=== PATIENT | female | born 1950 | race Caucasian/White ===

== ENCOUNTER 2023-10-19 03:54 | Inpatient (IN) | payer OTHER ==
[2023-10-19] MEDS ORDERED: ALBUTEROL SO4 2.5/IPRATROPIUM 0.5 INH SOL 3 ML VIAL.NEB. NEB ONE (04:05)
[2023-10-19] MEDS: ALBUTEROL SO4 2.5/IPRATROPIUM 0.5 INH SOL 3 ML VIAL.NEB. NEB ONE (04:06)
[2023-10-19] MEDS: methylPREDNISolone NA SUCC 125 MG/2 ML VIAL IVPB ONE (04:34)
[2023-10-19] MEDS: BUDESONIDE 0.5 MG/2 ML INH SUSP VIAL NEB ONE (04:34)
[2023-10-19] MEDS ORDERED: methylPREDNISolone NA SUCC 125 MG/2 ML VIAL ONE (04:35)
[2023-10-19 05:08] LABS: VENOUS BASE EXCESS 9.7 mmol/L (-2-2); VENOUS O2 SATURATION 37.6 % (70-80); VENOUS PH 7.218 (7.310-7.410)
[2023-10-19 05:10] LABS: HEMATOCRIT 35.5 % (32.4-45.2); HEMOGLOBIN 11.7 GM/dL (10.7-15.3); MCH 34.3 pg (25.7-33.7); MCHC 33.1 g/dl (32.0-36.0); MEAN CELL VOLUME 103.8 fl (80-96); MEAN PLT VOLUME 7.8 fl (7.5-11.1); PLATELET COUNT 238 10^3/uL (134-434); RBC 3.42 M/mm3 (3.60-5.2); RDW 18.2 % (11.6-15.6); VENOUS PCO2 104.8 mmHg (38-52); WHITE BLOOD COUNT 6.5 K/mm3 (4.0-10.0)
[2023-10-19 05:21] LABS: POTASSIUM 4.1 mmol/L (3.5-5.1)
[2023-10-19 05:23] LABS: CALCIUM 9.6 mg/dL (8.5-10.1)
[2023-10-19 05:24] LABS: ALBUMIN 3.3 g/dl (3.4-5.0); BLOOD UREA NITROGEN 21.3 mg/dL (7-18)
[2023-10-19 05:26] LABS: CREATININE 0.8 mg/dL (0.55-1.3)
[2023-10-19 05:28] LABS: BILIRUBIN,TOTAL 0.9 mg/dL (0.2-1); TOT PROT 6.1 g/dl (6.4-8.2)
[2023-10-19 05:34] LABS: INR 1.34 (0.83-1.09)
[2023-10-19 05:36] LABS: ACTIVATED PTT 39.3 SECONDS (25.2-36.5)
[2023-10-19] MEDS: FAMOTIDINE 20 MG/50 ML IVPB 20 MG/50 ML MG IVPB ONE (05:57)
[2023-10-19 06:13] LABS: ARTERIAL BLD GAS O2 SATURATION 88.2 % (95-98); ARTERIAL BLOOD GAS BASE EXCESS 8.1 mmol/L (-2-2); ARTERIAL BLOOD GAS PO2 63.2 mmHg (80-100); ARTERIAL BLOOD GAS pH 7.282 (7.350-7.450)
[2023-10-19 06:14] LABS: ALLENS TEST POSITIVE; VENT MODE S/T; VENT RATE 20
[2023-10-19] MEDS: FUROSEMIDE 40 MG/4 ML INJECTABLE VIAL IVPUSH ONE (06:48)
[2023-10-19] MEDS: AZITHROMYCIN IVPB 500 MG in DEXTROSE 5%-WATER - 250 ML IVPB ONE (06:49)
[2023-10-19] MEDS ORDERED: CEFTRIAXONE 1 GM/50 ML BAG ONE (06:50)
[2023-10-19] MEDS ORDERED: FUROSEMIDE 40 MG/4 ML INJECTABLE VIAL ONE ×2 (06:50→06:52)
[2023-10-19] MEDS ORDERED: AZITHROMYCIN IVPB 500 MG/250 ML BAG IVPB ONE (06:51)
[2023-10-19 09:33] LABS: ANISOCYTOSIS 1+; MACROCYTOSIS 1+
[2023-10-19] MEDS: ALBUTEROL SO4 0.083% IH SOL 2.5 MG/3 ML VIAL.NEB. NEB SCH (15:30)
[2023-10-19] MEDS: CEFEPIME 2 GM in DEXTROSE 5%-WATER 100 ML IVPB SCH (17:28)
[2023-10-19] MEDS ORDERED: CEFEPIME HCL 2 GM VIAL (RESTRICTED TO ID) IVPB SCH (18:00)
[2023-10-19] MEDS: BUDESONIDE/FORMETEROL FUMARATE 160/4.5 mcg INHALER IH SCH (21:11)
[2023-10-20] MEDS: PANTOPRAZOLE SODIUM 40 MG VIAL IVPUSH SCH (09:45)
[2023-10-20 09:59] LABS: INR 1.27 (0.83-1.09); PROTHROMBIN TIME (PATIENT) 14.2 SEC (9.7-13.0)
[2023-10-20] MEDS ORDERED: CEFEPIME HCL 1 GM VIAL (RESTRICTED TO ID) IVPB SCH (10:00)
[2023-10-20] MEDS ORDERED: CEFEPIME 1 GM in DEXTROSE 5%-WATER 100 ML IVPB SCH (10:00)
[2023-10-20 10:01] LABS: ACTIVATED PTT 32.2 SECONDS (25.2-36.5)
[2023-10-20 10:05] LABS: BASO % 0.2 % (0-2.0); HEMATOCRIT 33.3 % (32.4-45.2); HEMOGLOBIN 11.4 GM/dL (10.7-15.3); LYMPH % 7.6 % (8-40); MCH 34.5 pg (25.7-33.7); MCHC 34.2 g/dl (32.0-36.0); MEAN CELL VOLUME 100.9 fl (80-96); MONO % 9.9 % (3.8-10.2); NEUT % 82.3 % (42.8-82.8); PLATELET COUNT 215 10^3/uL (134-434); RDW 17.8 % (11.6-15.6); WHITE BLOOD COUNT 6.1 K/mm3 (4.0-10.0)
[2023-10-20 10:14] LABS: POTASSIUM 3.5 mmol/L (3.5-5.1)
[2023-10-20 10:16] LABS: CALCIUM 9.1 mg/dL (8.5-10.1)
[2023-10-20 10:17] LABS: BLOOD UREA NITROGEN 24.6 mg/dL (7-18); MAGNESIUM 1.5 mg/dL (1.8-2.4)
[2023-10-20 10:20] LABS: CREATININE 0.6 mg/dL (0.55-1.3); PHOSPHOROUS 1.7 mg/dL (2.5-4.9)
[2023-10-20 10:25] LABS: N-TERMINAL BNP 4132.8 pg/ml (5-125)
[2023-10-20] MEDS: MAGNESIUM SULF 50% (8.12 MEQ/2 ML-1 GM VIAL) IVPB ONE (11:35)
[2023-10-20] MEDS: POTASSIUM PHOSPHATE 30 MM in DEXTROSE 5%-WATER - 500 ML IVPB ONE (12:48)
[2023-10-20] MEDS: CEFEPIME 2 GM in DEXTROSE 5%-WATER 100 ML IVPB SCH (20:01)
[2023-10-20] MEDS: FUROSEMIDE INJECTION 100 MG in SODIUM CHLORIDE 90 ML IVPB SCH (20:02)
[2023-10-20] MEDS: DABIGATRAN ETEXILATE MESYLATE 75 MG CAPSULE PO SCH (22:20)
[2023-10-21 10:08] LABS: BASO % 0.4 % (0-2.0); EOS % 0.2 % (0-4.5); HEMATOCRIT 38.4 % (32.4-45.2); HEMOGLOBIN 12.8 GM/dL (10.7-15.3); LYMPH % 13.5 % (8-40); MCH 33.7 pg (25.7-33.7); MCHC 33.4 g/dl (32.0-36.0); MEAN CELL VOLUME 100.8 fl (80-96); MEAN PLT VOLUME 7.8 fl (7.5-11.1); MONO % 10.3 % (3.8-10.2); NEUT % 75.6 % (42.8-82.8); PLATELET COUNT 209 10^3/uL (134-434); RBC 3.81 M/mm3 (3.60-5.2); RDW 18.1 % (11.6-15.6); WHITE BLOOD COUNT 5.9 K/mm3 (4.0-10.0)
[2023-10-21 10:33] LABS: POTASSIUM 3.8 mmol/L (3.5-5.1)
[2023-10-21 10:36] LABS: CALCIUM 9.3 mg/dL (8.5-10.1); MAGNESIUM 1.6 mg/dL (1.8-2.4)
[2023-10-21 10:37] LABS: ALBUMIN 3.3 g/dl (3.4-5.0); BLOOD UREA NITROGEN 20.9 mg/dL (7-18)
[2023-10-21] MEDS: metoPROLOL SUCCINATE 25 MG TAB.SR.24H (FP) PO SCH (10:38)
[2023-10-21 10:39] LABS: PHOSPHOROUS 2.5 mg/dL (2.5-4.9)
[2023-10-21 10:41] LABS: CREATININE 0.6 mg/dL (0.55-1.3)
[2023-10-21 10:42] LABS: BILIRUBIN,TOTAL 1.5 mg/dL (0.2-1); TOT PROT 6.3 g/dl (6.4-8.2)
[2023-10-21] MEDS: CEFEPIME 2 GM in DEXTROSE 5%-WATER 100 ML IVPB SCH (18:19)
[2023-10-22 07:39] LABS: HEMATOCRIT 33.8 % (32.4-45.2); HEMOGLOBIN 11.4 GM/dL (10.7-15.3); MCH 34.3 pg (25.7-33.7); MCHC 33.9 g/dl (32.0-36.0); MEAN CELL VOLUME 101.2 fl (80-96); MEAN PLT VOLUME 8.4 fl (7.5-11.1); PLATELET COUNT 177 10^3/uL (134-434); RBC 3.34 M/mm3 (3.60-5.2); RDW 18.1 % (11.6-15.6); WHITE BLOOD COUNT 6.3 K/mm3 (4.0-10.0)
[2023-10-22 07:50] LABS: POTASSIUM 3.1 mmol/L (3.5-5.1)
[2023-10-22 07:51] LABS: CALCIUM 8.5 mg/dL (8.5-10.1)
[2023-10-22 07:52] LABS: BLOOD UREA NITROGEN 18.9 mg/dL (7-18); MAGNESIUM 1.4 mg/dL (1.8-2.4)
[2023-10-22 07:55] LABS: CREATININE 0.5 mg/dL (0.55-1.3); PHOSPHOROUS 3.1 mg/dL (2.5-4.9)
[2023-10-22] MEDS: FUROSEMIDE 40 MG/4 ML INJECTABLE VIAL IVPUSH SCH (09:35)
[2023-10-22] MEDS: ACETAMINOPHEN 1000 MG/100 ML BAG IVPB ONE (19:49)
[2023-10-22] MEDS ORDERED: KCL 20 MEQ PREMIX BAG 20 MEQ/100 ML INFUS.BAG IVPB SCH (20:30)
[2023-10-22] MEDS: MAGNESIUM OXIDE 400 MG TABLET (FP) PO ONE (20:52)
[2023-10-22] MEDS: MAGNESIUM SULFATE IN WATER 2 GM/50 ML IVPB IVPB ONE (20:52)
[2023-10-22] MEDS: KCL 10 MEQ IVPB 10 MEQ/100 ML INFUS.BAG IVPB SCH (22:33)
[2023-10-23 07:22] LABS: POTASSIUM 3.1 mmol/L (3.5-5.1)
[2023-10-23 07:27] LABS: BLOOD UREA NITROGEN 18.7 mg/dL (7-18); CALCIUM 8.4 mg/dL (8.5-10.1); MAGNESIUM 1.9 mg/dL (1.8-2.4)
[2023-10-23 07:30] LABS: PHOSPHOROUS 2.6 mg/dL (2.5-4.9)
[2023-10-23 07:31] LABS: CREATININE 0.4 mg/dL (0.55-1.3)
[2023-10-23 07:32] LABS: BILIRUBIN,TOTAL 2.4 mg/dL (0.2-1); TOT PROT 5.7 g/dl (6.4-8.2)
[2023-10-23] MEDS: ACETAMINOPHEN 325 MG TABLET (FP) PO PRN (15:47)
[2023-10-23] MEDS: SERTRALINE HCL 50 MG TABLET (FP) PO SCH (15:50)
[2023-10-23] MEDS: POTASSIUM CHLORIDE ORAL LIQUID 20 MEQ/15 ML PO SCH (21:19)
[2023-10-23] MEDS: DOCUSATE SODIUM 100 MG CAPSULE (FP) PO PRN (21:20)
[2023-10-24 06:16] LABS: HEMATOCRIT 36.8 % (32.4-45.2); HEMOGLOBIN 12.3 GM/dL (10.7-15.3); MCH 33.9 pg (25.7-33.7); MCHC 33.5 g/dl (32.0-36.0); MEAN CELL VOLUME 101.2 fl (80-96); MEAN PLT VOLUME 8.7 fl (7.5-11.1); PLATELET COUNT 155 10^3/uL (134-434); RBC 3.64 M/mm3 (3.60-5.2); RDW 16.9 % (11.6-15.6); WHITE BLOOD COUNT 8.1 K/mm3 (4.0-10.0)
[2023-10-24 06:39] LABS: CHLORIDE 87 mmol/L (98-107); SODIUM 135 mmol/L (136-145)
[2023-10-24 06:45] LABS: CALCIUM 8.8 mg/dL (8.5-10.1)
[2023-10-24 06:46] LABS: ALBUMIN 2.9 g/dl (3.4-5.0); BLOOD UREA NITROGEN 19.4 mg/dL (7-18); CO2 42 mmol/L (21-32); GLUCOSE,RANDOM 108 mg/dL (74-106); MAGNESIUM 1.9 mg/dL (1.8-2.4)
[2023-10-24 06:49] LABS: CREATININE 0.5 mg/dL (0.55-1.3); SGOT/AST 15 U/L (15-37); SGPT/ALT 16 U/L (13-61)
[2023-10-24 06:50] LABS: BILIRUBIN,TOTAL 1.8 mg/dL (0.2-1)
[2023-10-24 06:51] LABS: TOT PROT 5.8 g/dl (6.4-8.2)
[2023-10-24 06:52] LABS: ALK PHOS 85 U/L (45-117)
[2023-10-24 06:57] LABS: ANION GAP 6 mmol/L (4-13); POTASSIUM 2.9 mmol/L (3.5-5.1)
[2023-10-24] MEDS: MAGNESIUM SULF 50% (8.12 MEQ/2 ML-1 GM VIAL) IVPB ONE (08:30)
[2023-10-24] MEDS: KCL 10 MEQ IVPB 10 MEQ/100 ML INFUS.BAG IVPB SCH (08:30)
[2023-10-24] MEDS: POLYETHYLENE GLYCOL (HEALTHYLAX) 3350 17 GM PACKET PO SCH (10:00)
[2023-10-24 17:27] LABS: BLOOD UREA NITROGEN 17.9 mg/dL (7-18); CALCIUM 8.4 mg/dL (8.5-10.1); CREATININE 0.7 mg/dL (0.55-1.3); POTASSIUM 3.3 mmol/L (3.5-5.1)
[2023-10-25 06:34] LABS: HEMATOCRIT 36.2 % (32.4-45.2); HEMOGLOBIN 12.1 GM/dL (10.7-15.3); MCH 33.6 pg (25.7-33.7); MCHC 33.2 g/dl (32.0-36.0); MEAN CELL VOLUME 101.2 fl (80-96); MEAN PLT VOLUME 8.7 fl (7.5-11.1); PLATELET COUNT 169 10^3/uL (134-434); RBC 3.58 M/mm3 (3.60-5.2); RDW 17.4 % (11.6-15.6); WHITE BLOOD COUNT 7.4 K/mm3 (4.0-10.0)
[2023-10-25 07:04] LABS: POTASSIUM 3.5 mmol/L (3.5-5.1)
[2023-10-25 07:05] LABS: CALCIUM 8.4 mg/dL (8.5-10.1)
[2023-10-25 07:09] LABS: CREATININE 0.4 mg/dL (0.55-1.3)
[2023-10-25] MEDS: ALPRAZolam 1 MG TABLET PO PRN (13:58)
[2023-10-25] MEDS: AMINO ACIDS/PROTEIN HYDROLYS 30 ML LIQUID.PKT PO SCH (18:02)
[2023-10-26] MEDS: ALBUTEROL SO4 0.083% IH SOL 2.5 MG/3 ML VIAL.NEB. NEB SCH (07:40)
[2023-10-26] MEDS: ASCORBIC ACID 500 MG TABLET (FP) PO SCH (09:19)
[2023-10-26] MEDS: CEFEPIME 2 GM in DEXTROSE 5%-WATER 100 ML IVPB SCH (09:19)
[2023-10-26] MEDS: PANTOPRAZOLE SODIUM 40 MG VIAL IVPUSH SCH (09:19)
[2023-10-26] MEDS: metoPROLOL SUCCINATE 25 MG TAB.SR.24H (FP) PO SCH (09:19)
[2023-10-26] MEDS: BUDESONIDE/FORMETEROL FUMARATE 160/4.5 mcg INHALER IH SCH (11:20)
[2023-10-26] MEDS: DABIGATRAN ETEXILATE MESYLATE 75 MG CAPSULE PO SCH (11:21)
[2023-10-26] MEDS ORDERED: CEFEPIME HCL 2 GM VIAL (RESTRICTED TO ID) ONE (17:22)
[2023-10-28] MEDS: POLYETHYLENE GLYCOL (HEALTHYLAX) 3350 17 GM PACKET PO SCH (09:42)
[2023-10-28] MEDS: DOCUSATE SODIUM 100 MG CAPSULE (FP) PO PRN (11:12)
[2023-10-29 08:52] LABS: POTASSIUM 4.4 mmol/L (3.5-5.1)
[2023-10-29 08:55] LABS: CALCIUM 8.7 mg/dL (8.5-10.1)
[2023-10-29 08:56] LABS: BLOOD UREA NITROGEN 23.4 mg/dL (7-18); MAGNESIUM 1.7 mg/dL (1.8-2.4)
[2023-10-29 08:58] LABS: CREATININE 0.4 mg/dL (0.55-1.3)
[2023-10-29 09:00] LABS: BILIRUBIN,TOTAL 0.8 mg/dL (0.2-1)
[2023-10-29] MEDS: PANTOPRAZOLE 40 MG TABLET PO SCH (09:47)
[2023-10-29] MEDS: TORSEMIDE 20 MG TABLET (FP) PO SCH (09:47)
[2023-10-29] MEDS: BISACODYL 10 MG SUPP.RECT PR ONE (11:50)
[2023-10-29] MEDS: FUROSEMIDE 100 MG/10 ML INJECTABLE VIAL IVPB SCH (14:49)
[2023-10-29] MEDS: SENNOSIDES 8.6MG TABLET (FP) PO PRN (21:35)
[2023-10-29] MEDS: GLYCERIN 1 RECTAL SUPPOSITORY, ADULT RC ONE (22:34)
[2023-10-29 23:45] VITALS: BMI 41.8
[2023-10-30 08:42] LABS: POTASSIUM 3.6 mmol/L (3.5-5.1)
[2023-10-30 08:46] LABS: BLOOD UREA NITROGEN 24.1 mg/dL (7-18); CALCIUM 9.2 mg/dL (8.5-10.1)
[2023-10-30 08:50] LABS: CREATININE 0.5 mg/dL (0.55-1.3)
[2023-10-30 08:51] LABS: BILIRUBIN,TOTAL 1.1 mg/dL (0.2-1); TOT PROT 5.9 g/dl (6.4-8.2)
[2023-10-30] MEDS: MULTIVITAMINS (DAILY MVI) TABLET (FP) PO SCH (13:19)
[2023-10-31] MEDS: POTASSIUM CHLORIDE ORAL LIQUID 20 MEQ/15 ML PO ONE (09:02)
[2023-10-31 10:53] VITALS: BP 116/69; PULSE 99; RESP 24; TEMP 97.9
== END 2023-10-31 10:55 | DRG 190 ==
LOC: JER 03:54 → JERBED 06:22 → JICU 10:05 → J4W 10-26 06:54
PROVIDERS: ADMIT Internal Medicine; ATTEND Internal Medicine
PROC: 05HB33Z Insertion of Infusion Device into Right Basilic Vein, Percutaneous Approach (ICD-10-PCS; principal; 2023-10-20)
PROC: B51MZZA Fluoroscopy of Right Upper Extremity Veins, Guidance (ICD-10-PCS; 2023-10-20)
DX: J44.0 Chronic obstructive pulmonary disease with (acute) lower respiratory infection (principal); I50.23 Acute on chronic systolic (congestive) heart failure; J18.9 Pneumonia, unspecified organism; J96.21 Acute and chronic respiratory failure with hypoxia; J96.22 Acute and chronic respiratory failure with hypercapnia; Z68.41 Body mass index [BMI] 40.0-44.9, adult; E87.22 Chronic metabolic acidosis; E87.1 Hypo-osmolality and hyponatremia; E87.3 Alkalosis; I48.91 Unspecified atrial fibrillation; E87.70 Fluid overload, unspecified; E87.6 Hypokalemia; I11.0 Hypertensive heart disease with heart failure; E66.01 Morbid (severe) obesity due to excess calories; K21.9 Gastro-esophageal reflux disease without esophagitis; J44.1 Chronic obstructive pulmonary disease with (acute) exacerbation; Z99.81 Dependence on supplemental oxygen; Z86.718 Personal history of other venous thrombosis and embolism; Z88.0 Allergy status to penicillin
CPT/HCPCS: 0241U-QW; 36415; 36600; 71045-TC-FY; 71250-TC; 80048; 80053; 82803; 82962; 83690; 83735; 83880; 84100; 84484; 85025; 85027; 85610; 85730; 87040; 87899; 93005; 93010; 93306-TC; 94640; 94660; 97161-GP; 99285-25; J0131

== ENCOUNTER 2024-01-13 09:58 | Inpatient (IN) | payer OTHER ==
[2024-01-13] MEDS: SODIUM CHLORIDE 0.9% 1000 ML INFUS.BAG IV ONE ×2 (10:55→14:27)
[2024-01-13] MEDS: LACTATED RINGERS SOLUTION 1000 ML INFUS.BAG IV ONE (10:56)
[2024-01-13 11:24] VITALS: BMI 33.4
[2024-01-13 11:31] LABS: VENOUS BASE EXCESS -4.5 mmol/L (-2-2); VENOUS O2 SATURATION 98.4 % (70-80); VENOUS PCO2 43.9 mmHg (38-52); VENOUS PH 7.311 (7.310-7.410)
[2024-01-13 11:36] LABS: BASO % 0.8 % (0-2.0); EOS % 1.8 % (0-4.5); HEMOGLOBIN 10.9 GM/dL (10.7-15.3); LYMPH % 16.2 % (8-40); MCH 30.7 pg (25.7-33.7); MCHC 32.9 g/dl (32.0-36.0); MEAN CELL VOLUME 93.1 fl (80-96); MEAN PLT VOLUME 8.1 fl (7.5-11.1); MONO % 8.5 % (3.8-10.2); NEUT % 72.7 % (42.8-82.8); PLATELET COUNT 180 10^3/uL (134-434); RBC 3.54 M/mm3 (3.60-5.2); RDW 15.6 % (11.6-15.6); WHITE BLOOD COUNT 6.5 K/mm3 (4.0-10.0)
[2024-01-13 11:42] LABS: INR 2.31 (0.83-1.09); PROTHROMBIN TIME (PATIENT) 25.9 SEC (9.7-13.0)
[2024-01-13 11:45] LABS: ACTIVATED PTT 37.1 SECONDS (25.2-36.5)
[2024-01-13 11:53] LABS: POTASSIUM 4.6 mmol/L (3.5-5.1)
[2024-01-13 11:54] LABS: EPI CELLS >36 /uL (0-25.1); HYALINE CASTS 1 /uL (0-3.1); PH,URINE 5.5 (5.0-8.0); URINE APPEARANCE TURBID; URINE BACTERIA 4323 /uL (0-1359); URINE BILIRUBIN NEGATIVE (NEGATIVE); URINE COLOR YELLOW; URINE GLUCOSE (UA) NEGATIVE (NEGATIVE); URINE KETONE NEGATIVE (NEGATIVE); URINE LEUK ESTERASE 3+ (NEGATIVE); URINE NITRITE NEGATIVE (NEGATIVE); URINE PROTEIN 1+ (NEGATIVE); URINE UROBILINOGEN 0.2 mg/dL (0.2-1.0); URINE WBC 15497 /uL (0-25.8)
[2024-01-13 11:55] LABS: ALBUMIN 2.5 g/dl (3.4-5.0); BLOOD UREA NITROGEN 19.5 mg/dL (7-18); CALCIUM 8.3 mg/dL (8.5-10.1); MAGNESIUM 1.4 mg/dL (1.8-2.4)
[2024-01-13 11:58] LABS: CREATININE 0.5 mg/dL (0.55-1.3)
[2024-01-13 12:00] LABS: BILIRUBIN,TOTAL 0.5 mg/dL (0.2-1); TOT PROT 4.9 g/dl (6.4-8.2)
[2024-01-13 12:45] LABS: URINE RBC 180 /uL (0-23.9)
[2024-01-13] MEDS ORDERED: MAGNESIUM SULFATE IN WATER 2 GM/50 ML IVPB IVPB ONE (13:00)
[2024-01-13] MEDS ORDERED: AZTREONAM 1 GM VIAL (RESTRICTED TO ID) ONE (13:01)
[2024-01-13] MEDS: MAGNESIUM SULF 50% (8.12 MEQ/2 ML-1 GM VIAL) IVPB ONE (13:05)
[2024-01-13] MEDS: CEFTRIAXONE 1 GM in DEXTROSE 5%-WATER - 100 ML IVPB ONE (13:05)
[2024-01-13] MEDS: AZTREONAM 1 GM in DEXTROSE 5%-WATER - 50 ML IVPB ONE (14:52)
[2024-01-13] MEDS: VANCOMYCIN HCL 1,500 MG in DEXTROSE 5%-WATER - 500 ML IVPB ONE (14:53)
[2024-01-13] MEDS: VANCOMYCIN PREMIX 1.5 GM 1,500 MG/300 ML BAG IVPB ONE (15:32)
[2024-01-13] MEDS: SODIUM CHLORIDE 1,000 ML IV SCH (17:09)
[2024-01-13] MEDS: APIXABAN 5 MG TABLET PO SCH (23:55)
[2024-01-13] MEDS: MONTELUKAST NA 5 MG TAB.CHEW PO SCH (23:55)
[2024-01-13] MEDS: LACTOBACILLUS ACIDOPHILUS 1 TABLET PO SCH (23:57)
[2024-01-14] MEDS: INSULIN ASPART SLIDING SCALE (NOVOLOG) 1 VIAL SQ SCH (00:17)
[2024-01-14 07:27] LABS: BASO % 0.9 % (0-2.0); EOS % 2.1 % (0-4.5); HEMATOCRIT 36.1 % (32.4-45.2); HEMOGLOBIN 11.7 GM/dL (10.7-15.3); LYMPH % 19.9 % (8-40); MCHC 32.3 g/dl (32.0-36.0); MEAN CELL VOLUME 95.8 fl (80-96); MEAN PLT VOLUME 8.8 fl (7.5-11.1); MONO % 7.5 % (3.8-10.2); NEUT % 69.6 % (42.8-82.8); PLATELET COUNT 188 10^3/uL (134-434); RBC 3.76 M/mm3 (3.60-5.2); RDW 15.7 % (11.6-15.6); WHITE BLOOD COUNT 6.2 K/mm3 (4.0-10.0)
[2024-01-14 07:59] LABS: POTASSIUM 4.6 mmol/L (3.5-5.1)
[2024-01-14 08:08] LABS: ALBUMIN 2.7 g/dl (3.4-5.0); BILIRUBIN,TOTAL 0.5 mg/dL (0.2-1); TOT PROT 5.4 g/dl (6.4-8.2)
[2024-01-14 08:12] LABS: MAGNESIUM 1.6 mg/dL (1.8-2.4)
[2024-01-14 08:13] LABS: CREATININE 0.5 mg/dL (0.55-1.3); PHOSPHOROUS 3.4 mg/dL (2.5-4.9)
[2024-01-14 08:14] LABS: CALCIUM 8.4 mg/dL (8.5-10.1)
[2024-01-14] MEDS: CEFTRIAXONE 1 GM in DEXTROSE 5%-WATER - 50 ML IVPB SCH (09:37)
[2024-01-14] MEDS: SERTRALINE HCL 50 MG TABLET (FP) PO SCH (09:37)
[2024-01-14] MEDS ORDERED: ENOXAPARIN NA (PORCINE) 40 MG/0.4 ML DISP.SYRIN SQ SCH (10:00)
[2024-01-14] MEDS ORDERED: APIXABAN 5 MG TABLET PO SCH (10:00)
[2024-01-14] MEDS: MAGNESIUM 2GM/50ML STERILE WATER IVPB IVPB ONE (12:52)
[2024-01-15 08:20] LABS: BASO % 0.9 % (0-2.0); EOS % 1.6 % (0-4.5); HEMATOCRIT 33.9 % (32.4-45.2); HEMOGLOBIN 11.1 GM/dL (10.7-15.3); LYMPH % 13.3 % (8-40); MCH 30.9 pg (25.7-33.7); MCHC 32.6 g/dl (32.0-36.0); MEAN CELL VOLUME 94.9 fl (80-96); MEAN PLT VOLUME 8.6 fl (7.5-11.1); MONO % 8.1 % (3.8-10.2); NEUT % 76.1 % (42.8-82.8); PLATELET COUNT 177 10^3/uL (134-434); RBC 3.57 M/mm3 (3.60-5.2); RDW 15.8 % (11.6-15.6); WHITE BLOOD COUNT 7.3 K/mm3 (4.0-10.0)
[2024-01-15 08:39] LABS: POTASSIUM 3.9 mmol/L (3.5-5.1)
[2024-01-15 08:44] LABS: BLOOD UREA NITROGEN 12.6 mg/dL (7-18)
[2024-01-15 08:46] LABS: ALBUMIN 2.4 g/dl (3.4-5.0); CALCIUM 8.5 mg/dL (8.5-10.1)
[2024-01-15 08:51] LABS: BILIRUBIN,TOTAL 0.5 mg/dL (0.2-1); CREATININE 0.5 mg/dL (0.55-1.3); TOT PROT 5.1 g/dl (6.4-8.2)
[2024-01-15] MEDS: metoPROLOL SUCCINATE 25 MG TAB.SR.24H (FP) PO SCH (10:55)
[2024-01-15] MEDS: DAPTOMYCIN 300 MG in SODIUM CHLORIDE 50 ML IVPB ONE (12:20)
[2024-01-15] MEDS: DAPTOMYCIN 300 MG in SODIUM CHLORIDE 50 ML IVPB SCH (15:51)
[2024-01-15 15:57] LABS: N-TERMINAL BNP 6716.3 pg/ml (5-125)
[2024-01-15] MEDS: MELATONIN 5 MG TABLETS PO SCH (22:51)
[2024-01-16 07:46] LABS: EOS % 2.1 % (0-4.5); MCH 30.8 pg (25.7-33.7); MCHC 32.5 g/dl (32.0-36.0); MEAN CELL VOLUME 94.7 fl (80-96); MEAN PLT VOLUME 8.7 fl (7.5-11.1); MONO % 10.1 % (3.8-10.2); NEUT % 69.8 % (42.8-82.8); PLATELET COUNT 190 10^3/uL (134-434); RBC 3.59 M/mm3 (3.60-5.2); RDW 15.8 % (11.6-15.6)
[2024-01-16 08:17] LABS: CALCIUM 8.6 mg/dL (8.5-10.1)
[2024-01-16 08:18] LABS: ALBUMIN 2.5 g/dl (3.4-5.0)
[2024-01-16 08:19] LABS: BLOOD UREA NITROGEN 10.9 mg/dL (7-18)
[2024-01-16 08:21] LABS: BILIRUBIN,TOTAL 0.6 mg/dL (0.2-1); CREATININE 0.5 mg/dL (0.55-1.3)
[2024-01-16 08:22] LABS: TOT PROT 5.1 g/dl (6.4-8.2)
[2024-01-16] MEDS: CEFTRIAXONE 1 GM in DEXTROSE 5%-WATER - 50 ML IVPB SCH (11:15)
[2024-01-16] MEDS: PANTOPRAZOLE 40 MG TABLET PO SCH (11:16)
[2024-01-16] MEDS: DAPTOMYCIN 300 MG in SODIUM CHLORIDE 50 ML IVPB SCH (11:59)
[2024-01-16] MEDS: LACTOBACILLUS ACIDOPHILUS 1 TABLET PO SCH (22:19)
[2024-01-17 09:35] LABS: POTASSIUM 4.5 mmol/L (3.5-5.1)
[2024-01-17 09:37] LABS: ALBUMIN 2.4 g/dl (3.4-5.0); CALCIUM 8.8 mg/dL (8.5-10.1)
[2024-01-17 09:38] LABS: BLOOD UREA NITROGEN 9.9 mg/dL (7-18)
[2024-01-17 09:39] LABS: BASO % 1.1 % (0-2.0); EOS % 1.4 % (0-4.5); HEMATOCRIT 32.5 % (32.4-45.2); HEMOGLOBIN 10.4 GM/dL (10.7-15.3); LYMPH % 10.4 % (8-40); MCH 30.7 pg (25.7-33.7); MCHC 32.1 g/dl (32.0-36.0); MEAN CELL VOLUME 95.7 fl (80-96); MEAN PLT VOLUME 8.7 fl (7.5-11.1); NEUT % 79.1 % (42.8-82.8); PLATELET COUNT 181 10^3/uL (134-434); RDW 16.1 % (11.6-15.6); WHITE BLOOD COUNT 6.9 K/mm3 (4.0-10.0)
[2024-01-17 09:41] LABS: CREATININE 0.4 mg/dL (0.55-1.3)
[2024-01-17 09:42] LABS: BILIRUBIN,TOTAL 0.5 mg/dL (0.2-1); TOT PROT 5.1 g/dl (6.4-8.2)
[2024-01-17 09:50] VITALS: RESP 17
[2024-01-17] MEDS: FUROSEMIDE 20 MG TABLET (FP) PO SCH (11:12)
[2024-01-17 13:34] VITALS: BP 108/78; PULSE 109; TEMP 98.1
[2024-01-17] MEDS: FUROSEMIDE 40 MG/4 ML INJECTABLE VIAL IVPUSH ONE (13:47)
[2024-01-17] MEDS ORDERED: metoPROLOL SUCCINATE 25 MG TAB.SR.24H (FP) PO SCH (22:00)
== END 2024-01-17 20:50 | DRG 871 ==
LOC: JER 09:58 → JERBED 16:00 → J4W 21:40
PROVIDERS: ADMIT Internal Medicine; ATTEND Internal Medicine
DX: A41.9 Sepsis, unspecified organism (principal); J18.9 Pneumonia, unspecified organism; N39.0 Urinary tract infection, site not specified; I24.89 Other forms of acute ischemic heart disease; J44.0 Chronic obstructive pulmonary disease with (acute) lower respiratory infection; I48.91 Unspecified atrial fibrillation; K21.9 Gastro-esophageal reflux disease without esophagitis; Z79.01 Long term (current) use of anticoagulants; G47.33 Obstructive sleep apnea (adult) (pediatric); E11.9 Type 2 diabetes mellitus without complications
CPT/HCPCS: 36415; 70450-TC; 71045-TC-FY; 71250-TC; 72125-TC; 72170-TC-FY; 73502-TC-LT-FY; 80053; 81003; 82803; 82962; 83605; 83735; 83880; 84100; 84484; 85025; 85610; 85730; 86850; 86900; 86901; 87086; 87186; 93005; 93010; 93306-TC; 99291; J0878

== ENCOUNTER 2024-01-22 08:38 | Inpatient (IN) | payer OTHER ==
[2024-01-22 10:24] LABS: VENOUS BASE EXCESS -0.6 mmol/L (-2-2); VENOUS O2 SATURATION 79.3 % (70-80); VENOUS PH 7.223 (7.310-7.410)
[2024-01-22 10:29] LABS: VENOUS PCO2 71.3 mmHg (38-52)
[2024-01-22 10:35] LABS: BASO % 0.6 % (0-2.0); EOS % 0.8 % (0-4.5); HEMATOCRIT 35.8 % (32.4-45.2); HEMOGLOBIN 11.5 GM/dL (10.7-15.3); LYMPH % 10.2 % (8-40); MCHC 32.2 g/dl (32.0-36.0); MEAN CELL VOLUME 96.3 fl (80-96); MEAN PLT VOLUME 7.9 fl (7.5-11.1); MONO % 8.6 % (3.8-10.2); NEUT % 79.8 % (42.8-82.8); PLATELET COUNT 273 10^3/uL (134-434); RBC 3.72 M/mm3 (3.60-5.2); RDW 15.9 % (11.6-15.6); WHITE BLOOD COUNT 6.4 K/mm3 (4.0-10.0)
[2024-01-22 10:36] LABS: INR 2.07 (0.83-1.09); PROTHROMBIN TIME (PATIENT) 23.3 SEC (9.7-13.0)
[2024-01-22 10:39] LABS: ACTIVATED PTT 26.8 SECONDS (25.2-36.5)
[2024-01-22 10:54] LABS: POTASSIUM 5.1 mmol/L (3.5-5.1)
[2024-01-22 10:56] LABS: ALBUMIN 2.8 g/dl (3.4-5.0); BLOOD UREA NITROGEN 13.5 mg/dL (7-18)
[2024-01-22 10:59] LABS: CREATININE 0.7 mg/dL (0.55-1.3)
[2024-01-22 11:01] LABS: BILIRUBIN,TOTAL 0.5 mg/dL (0.2-1); TOT PROT 5.8 g/dl (6.4-8.2)
[2024-01-22] MEDS: SODIUM CHLORIDE 0.9% 500 ML INFUS.BAG IV ONE (11:30)
[2024-01-22] MEDS ORDERED: DIGOXIN 0.5 MG/2 ML AMPUL ONE (11:30)
[2024-01-22] MEDS: DIGOXIN 0.5 MG/2 ML AMPUL IVPUSH ONE (11:38)
[2024-01-22 12:25] LABS: EPI CELLS >36 /uL (0-25.1); HYALINE CASTS 14 /uL (0-3.1); PH,URINE 5.5 (5.0-8.0); URINE APPEARANCE CLOUDY; URINE BACTERIA 4 /uL (0-1359); URINE BILIRUBIN NEGATIVE (NEGATIVE); URINE COLOR YELLOW; URINE GLUCOSE (UA) NEGATIVE (NEGATIVE); URINE KETONE TRACE (NEGATIVE); URINE LEUK ESTERASE 1+ (NEGATIVE); URINE NITRITE NEGATIVE (NEGATIVE); URINE PROTEIN 1+ (NEGATIVE); URINE UROBILINOGEN 0.2 mg/dL (0.2-1.0); URINE WBC 327 /uL (0-25.8)
[2024-01-22 13:53] LABS: URINE RBC 47.7 /uL (0-23.9); YEAST FEW (NEGATIVE)
[2024-01-22 14:36] LABS: ARTERIAL BLD GAS O2 SATURATION 98.3 % (95-98); ARTERIAL BLOOD GAS BASE EXCESS 1.9 mmol/L (-2-2); ARTERIAL BLOOD GAS PO2 137.2 mmHg (80-100); ARTERIAL BLOOD GAS pH 7.268 (7.350-7.450)
[2024-01-22 17:17] LABS: ARTERIAL BLD GAS O2 SATURATION 96.6 % (95-98); ARTERIAL BLOOD GAS BASE EXCESS 1.2 mmol/L (-2-2); ARTERIAL BLOOD GAS PO2 96.3 mmHg (80-100); ARTERIAL BLOOD GAS pH 7.312 (7.350-7.450)
[2024-01-22 17:29] LABS: ALLENS TEST POSITIVE; VENT MODE S/T; VENT RATE 18
[2024-01-22] MEDS ORDERED: ALPRAZolam 1 MG TABLET PO PRN (17:57)
[2024-01-22] MEDS ORDERED: ONDANSETRON 4 MG TABLET PO PRN (17:57)
[2024-01-22] MEDS: FUROSEMIDE 40 MG/4 ML INJECTABLE VIAL IVPUSH ONE (19:36)
[2024-01-22] MEDS ORDERED: FUROSEMIDE 40 MG/4 ML INJECTABLE VIAL ONE (19:38)
[2024-01-22] MEDS ORDERED: metoPROLOL SUCCINATE 25 MG TAB.SR.24H (FP) PO SCH (22:00)
[2024-01-22] MEDS ORDERED: INSULIN ASPART SLIDING SCALE (NOVOLOG) 1 VIAL SQ SCH (22:00)
[2024-01-22] MEDS: MELATONIN 5 MG TABLETS PO SCH (22:51)
[2024-01-22] MEDS: APIXABAN 5 MG TABLET PO SCH (22:51)
[2024-01-22] MEDS: MONTELUKAST NA 5 MG TAB.CHEW PO SCH (22:51)
[2024-01-23 02:45] VITALS: BMI 35.7
[2024-01-23 11:03] LABS: BASO % 1.1 % (0-2.0); EOS % 2.3 % (0-4.5); HEMATOCRIT 32.1 % (32.4-45.2); HEMOGLOBIN 10.7 GM/dL (10.7-15.3); LYMPH % 13.5 % (8-40); MCH 31.5 pg (25.7-33.7); MCHC 33.4 g/dl (32.0-36.0); MEAN CELL VOLUME 94.4 fl (80-96); MEAN PLT VOLUME 8.4 fl (7.5-11.1); MONO % 10.5 % (3.8-10.2); NEUT % 72.6 % (42.8-82.8); PLATELET COUNT 191 10^3/uL (134-434); RBC 3.41 M/mm3 (3.60-5.2); WHITE BLOOD COUNT 5.6 K/mm3 (4.0-10.0)
[2024-01-23] MEDS: SERTRALINE HCL 25 MG TABLET (FP) PO SCH (11:27)
[2024-01-23] MEDS: PANTOPRAZOLE 40 MG TABLET PO SCH (11:27)
[2024-01-23 11:53] LABS: CHLORIDE 103 mmol/L (98-107); POTASSIUM 3.6 mmol/L (3.5-5.1); SODIUM 142 mmol/L (136-145)
[2024-01-23 11:55] LABS: ALBUMIN 2.4 g/dl (3.4-5.0); ANION GAP 8 mmol/L (4-13); CALCIUM 8.6 mg/dL (8.5-10.1); CO2 31 mmol/L (21-32)
[2024-01-23 11:56] LABS: BLOOD UREA NITROGEN 10.6 mg/dL (7-18); MAGNESIUM 1.4 mg/dL (1.8-2.4)
[2024-01-23 11:58] LABS: CREATININE 0.5 mg/dL (0.55-1.3); SGOT/AST 19 U/L (15-37); SGPT/ALT 10 U/L (13-61)
[2024-01-23 11:59] LABS: PHOSPHOROUS 2.4 mg/dL (2.5-4.9)
[2024-01-23 12:00] LABS: BILIRUBIN,TOTAL 0.5 mg/dL (0.2-1); TOT PROT 4.9 g/dl (6.4-8.2)
[2024-01-23 12:01] LABS: ALK PHOS 61 U/L (45-117); GLUCOSE,RANDOM 49 mg/dL (74-106)
[2024-01-23] MEDS: DEXTROSE 50%-WATER 25 GM/50 ML DISP.SYRIN IVPUSH ONE (12:37)
[2024-01-23] MEDS: FUROSEMIDE 40 MG/4 ML INJECTABLE VIAL IVPUSH ONE (15:08)
[2024-01-23] MEDS: methylPREDNISolone NA SUCC 40 MG/1 ML VIAL IVPUSH SCH (15:09)
[2024-01-23] MEDS: ALBUTEROL SO4 2.5/IPRATROPIUM 0.5 INH SOL 3 ML VIAL.NEB. NEB SCH (15:16)
[2024-01-23] MEDS: MAGNESIUM OXIDE 400 MG TABLET (FP) PO ONE (16:10)
[2024-01-23] MEDS: ACETAMINOPHEN 325 MG TABLET (FP) PO PRN (16:11)
[2024-01-23] MEDS: PATIENT'S OWN MEDICATION (NON-FORMULARY) (Fluticasone Furoate [Arnuity Ellipta] 100 MCG Bl IH SCH (16:50)
[2024-01-23] MEDS: metoPROLOL SUCCINATE 25 MG TAB.SR.24H (FP) PO SCH (21:15)
[2024-01-23] MEDS: BUDESONIDE/FORMETEROL FUMARATE 160/4.5 mcg INHALER IH SCH (21:17)
[2024-01-24] MEDS: FUROSEMIDE 40 MG/4 ML INJECTABLE VIAL IVPUSH SCH (05:20)
[2024-01-24 10:23] LABS: BASO % 0.2 % (0-2.0); HEMATOCRIT 35.4 % (32.4-45.2); HEMOGLOBIN 11.8 GM/dL (10.7-15.3); MCH 30.7 pg (25.7-33.7); MCHC 33.2 g/dl (32.0-36.0); MEAN CELL VOLUME 92.4 fl (80-96); MEAN PLT VOLUME 8.4 fl (7.5-11.1); MONO % 6.7 % (3.8-10.2); NEUT % 85.1 % (42.8-82.8); PLATELET COUNT 241 10^3/uL (134-434); RBC 3.83 M/mm3 (3.60-5.2); RDW 16.2 % (11.6-15.6); WHITE BLOOD COUNT 5.3 K/mm3 (4.0-10.0)
[2024-01-24 11:00] LABS: CHLORIDE 89 mmol/L (98-107); SODIUM 136 mmol/L (136-145)
[2024-01-24 11:02] LABS: BLOOD UREA NITROGEN 10.1 mg/dL (7-18); CALCIUM 8.4 mg/dL (8.5-10.1); CO2 37 mmol/L (21-32)
[2024-01-24 11:03] LABS: GLUCOSE,RANDOM 144 mg/dL (74-106)
[2024-01-24 11:05] LABS: SGOT/AST 13 U/L (15-37); SGPT/ALT 11 U/L (13-61)
[2024-01-24 11:06] LABS: CREATININE 0.7 mg/dL (0.55-1.3)
[2024-01-24 11:07] LABS: BILIRUBIN,TOTAL 0.8 mg/dL (0.2-1); TOT PROT 5.8 g/dl (6.4-8.2)
[2024-01-24 11:08] LABS: ALK PHOS 68 U/L (45-117)
[2024-01-24 11:15] LABS: ALBUMIN 2.9 g/dl (3.4-5.0); ANION GAP 9 mmol/L (4-13); POTASSIUM 2.9 mmol/L (3.5-5.1)
[2024-01-24] MEDS: KCL 10 MEQ IVPB 10 MEQ/100 ML INFUS.BAG IVPB SCH (12:43)
[2024-01-24] MEDS: MAGNESIUM 2GM/50ML STERILE WATER IVPB IVPB ONE (12:44)
[2024-01-24] MEDS: POTASSIUM CHLORIDE ORAL LIQUID 20 MEQ/15 ML PO ONE (13:31)
[2024-01-24] MEDS: FUROSEMIDE 40 MG TABLET (FP) PO SCH (13:32)
[2024-01-24] MEDS: MULTIVITAMINS (DAILY MVI) TABLET (FP) PO SCH (13:32)
[2024-01-24] MEDS ORDERED: INSULIN ASPART SLIDING SCALE (NOVOLOG) 1 VIAL SQ ONE (13:44)
[2024-01-24] MEDS: oxyCODONE HCL 5 MG TABLET PO PRN (14:23)
[2024-01-24] MEDS: INSULIN (NOVOLOG) ASPART 100 UNITS/ML 10ML VIAL SQ SCH (16:25)
[2024-01-24] MEDS: MAGNESIUM OXIDE 400 MG TABLET (FP) PO SCH (21:49)
[2024-01-24] MEDS: POTASSIUM CHLORIDE TABS 20 MEQ TABLET.ER (FP) PO SCH (21:49)
[2024-01-24 22:59] VITALS: PULSE 104
[2024-01-25] MEDS: EMPAGLIFLOZIN (JARDIANCE) 10 MG TABLET PO SCH (06:26)
[2024-01-25 08:49] VITALS: BP 108/60; RESP 18; TEMP 98
[2024-01-25 09:05] LABS: BASO % 0.1 % (0-2.0); HEMATOCRIT 34.1 % (32.4-45.2); HEMOGLOBIN 11.2 GM/dL (10.7-15.3); LYMPH % 12.6 % (8-40); MCH 30.7 pg (25.7-33.7); MCHC 32.9 g/dl (32.0-36.0); MEAN CELL VOLUME 93.3 fl (80-96); MEAN PLT VOLUME 8.3 fl (7.5-11.1); MONO % 10.8 % (3.8-10.2); NEUT % 76.5 % (42.8-82.8); PLATELET COUNT 250 10^3/uL (134-434); RBC 3.65 M/mm3 (3.60-5.2); RDW 16.1 % (11.6-15.6); WHITE BLOOD COUNT 7.1 K/mm3 (4.0-10.0)
[2024-01-25 09:15] LABS: POTASSIUM 3.1 mmol/L (3.5-5.1)
[2024-01-25 09:18] LABS: CALCIUM 8.3 mg/dL (8.5-10.1)
[2024-01-25 09:19] LABS: ALBUMIN 2.8 g/dl (3.4-5.0); MAGNESIUM 1.3 mg/dL (1.8-2.4)
[2024-01-25 09:22] LABS: CREATININE 0.6 mg/dL (0.55-1.3)
[2024-01-25 09:23] LABS: BILIRUBIN,TOTAL 0.6 mg/dL (0.2-1); TOT PROT 5.7 g/dl (6.4-8.2)
[2024-01-25] MEDS ORDERED: TORSEMIDE 100 MG TABLET PO SCH (10:00)
[2024-01-25] MEDS ORDERED: predniSONE 20 MG TABLET (UD) PO SCH (10:00)
== END 2024-01-25 09:16 | DRG 189 ==
LOC: JER 08:38 → JERBED 15:12 → J8W 20:24
PROVIDERS: ADMIT Internal Medicine; ATTEND Nurse Practitioner Family
DX: J96.02 Acute respiratory failure with hypercapnia (principal); I50.23 Acute on chronic systolic (congestive) heart failure; I24.89 Other forms of acute ischemic heart disease; J44.1 Chronic obstructive pulmonary disease with (acute) exacerbation; I11.0 Hypertensive heart disease with heart failure; I48.91 Unspecified atrial fibrillation; E66.9 Obesity, unspecified; Z68.35 Body mass index [BMI] 35.0-35.9, adult; E11.9 Type 2 diabetes mellitus without complications
CPT/HCPCS: 0241U-QW; 36415; 36600; 70450-TC; 71045-TC-FY; 80053; 80061; 81003; 82140; 82803; 82962; 83036; 83735; 83880; 84100; 84132; 84439; 84443; 84484; 85025; 85610; 85730; 87040; 87086; 93005; 93010; 94640; 94660; 97116-GP; 97161-GP; 99285-25

== ENCOUNTER 2024-10-01 09:56 | Inpatient (IN) | payer OTHER ==
[2024-10-01] MEDS: SODIUM CHLORIDE 0.9% 500 ML INFUS.BAG IV ONE (10:58)
[2024-10-01 10:59] LABS: ABSOLUTE IMMATURE GRANULOCYTES 0.02 x10^3/uL (0.0-0.031); BASOPHILS # 0.06 x10^3/uL (0.01-0.08); EOSINOPHIL % 2.3 % (0.7-5.8); EOSINOPHILS # 0.20 x10^3/uL (0.04-0.36); MCHC 32.5 g/dl (32.2-35.5); MEAN CELL VOLUME 94.7 fl (79.4-94.8); MEAN PLT VOLUME 10.0 fl (9.4-12.3); MONOCYTE # 0.70 x10^3/uL (0.24-0.86); MONOCYTE % 8.1 % (4.7-12.5); RDW 12.4 % (12.4-16.6)
[2024-10-01 11:06] LABS: INR 1.39 (0.83-1.09); PROTHROMBIN TIME (PATIENT) 15.3 SEC (9.7-13.0)
[2024-10-01 11:08] LABS: ACTIVATED PTT 32.3 SECONDS (25.2-36.5)
[2024-10-01 11:31] LABS: CO2 30.0 mmol/L (21-32); GLUCOSE,RANDOM 103.0 mg/dL (74-106)
[2024-10-01 11:34] LABS: CREATININE 0.6 mg/dL (0.55-1.3); SGPT/ALT 23.0 U/L (13-61)
[2024-10-01 11:35] LABS: SGOT/AST 43.0 U/L (15-37)
[2024-10-01 11:36] LABS: TOT PROT 6.7 g/dl (6.4-8.2)
[2024-10-01 11:37] LABS: ALK PHOS 120.0 U/L (45-117)
[2024-10-01] MEDS ORDERED: VANCOMYCIN 1 GM PREMIX (F) 1 GM/200 ML BAG ONE (11:41)
[2024-10-01] MEDS: VANCOMYCIN 1,000 MG in DEXTROSE 5%-WATER - 250 ML IVPB ONE (11:58)
[2024-10-01] MEDS ORDERED: PIPERACILLIN/TAZOB 3.375 GM 3.375 GM/50 ML BAG IVPB ONE (13:24)
[2024-10-01 13:29] LABS: CO2 35.0 mmol/L (21-32); GLUCOSE,RANDOM 109.0 mg/dL (74-106)
[2024-10-01] MEDS: PIPERACILLIN/TAZOB 3.375 GM 3.375 GM in DEXTROSE 5%-WATER - 50 ML IVPB ONE (13:29)
[2024-10-01 13:32] LABS: CREATININE 0.7 mg/dL (0.55-1.3)
[2024-10-01 14:20] LABS: EPI CELLS 27 /uL (0-25.1); HYALINE CASTS 1 /uL (0-3.1); URINE APPEARANCE TURBID; URINE BACTERIA >9,000 /uL (0-1359); URINE BILIRUBIN NEGATIVE (NEGATIVE); URINE COLOR YELLOW; URINE GLUCOSE (UA) TRACE (NEGATIVE); URINE KETONE NEGATIVE (NEGATIVE); URINE LEUK ESTERASE 3+ (NEGATIVE); URINE NITRITE POSITIVE (NEGATIVE); URINE PROTEIN 1+ (NEGATIVE); URINE UROBILINOGEN 1.0 mg/dL (0.2-1.0); URINE WBC 83 /uL (0-25.8)
[2024-10-01 14:47] LABS: URINE CRYSTALS PRESENT /hpf; URINE RBC 381.7 /uL (0-23.9); YEAST NONE SEEN (NEGATIVE)
[2024-10-01] MEDS ORDERED: ONDANSETRON 4 MG TABLET PO PRN (14:47)
[2024-10-01] MEDS ORDERED: PATIENT'S OWN MEDICATION (NON-FORMULARY) (Fluticasone Furoate [Arnuity Ellipta] 100 MCG Bl IH SCH (15:00)
[2024-10-01 15:13] VITALS: BMI 29.9
[2024-10-01 15:19] LABS: HCV DIAGNOSTIC IN-HOUSE W/RFLX NON-REACTIVE (NONREACTIVE)
[2024-10-01 15:20] LABS: HIV INTERPRETATION NEGATIVE (NEGATIVE)
[2024-10-01] MEDS: AZITHROMYCIN IVPB 500 MG/250 ML BAG IVPB SCH (15:51)
[2024-10-01 16:50] LABS: N-TERMINAL BNP 3171.0 pg/ml (5-125)
[2024-10-01] MEDS: ALBUTEROL SO4 2.5/IPRATROPIUM 0.5 INH SOL 3 ML VIAL.NEB. NEB SCH (20:08)
[2024-10-01] MEDS: MONTELUKAST NA 5 MG TAB.CHEW PO SCH (22:13)
[2024-10-01] MEDS: MELATONIN 5 MG TABLETS PO SCH (22:13)
[2024-10-01] MEDS: APIXABAN 5 MG TABLET PO SCH (22:13)
[2024-10-01] MEDS: MAGNESIUM OXIDE 400 MG TABLET (FP) PO SCH (22:13)
[2024-10-02 07:31] LABS: ABSOLUTE IMMATURE GRANULOCYTES 0.02 x10^3/uL (0.0-0.031); BASOPHILS # 0.04 x10^3/uL (0.01-0.08); EOSINOPHIL % 4.2 % (0.7-5.8); EOSINOPHILS # 0.25 x10^3/uL (0.04-0.36); MCHC 31.6 g/dl (32.2-35.5); MEAN CELL VOLUME 96.7 fl (79.4-94.8); MEAN PLT VOLUME 10.3 fl (9.4-12.3); MONOCYTE # 0.48 x10^3/uL (0.24-0.86); MONOCYTE % 8.0 % (4.7-12.5); RDW 12.4 % (12.4-16.6)
[2024-10-02 07:57] LABS: CO2 29.0 mmol/L (21-32); GLUCOSE,RANDOM 86.0 mg/dL (74-106)
[2024-10-02 08:00] LABS: CREATININE 0.5 mg/dL (0.55-1.3); SGOT/AST 25.0 U/L (15-37); SGPT/ALT 26.0 U/L (13-61)
[2024-10-02 08:01] LABS: TOT PROT 6.4 g/dl (6.4-8.2)
[2024-10-02 08:03] LABS: ALK PHOS 124.0 U/L (45-117)
[2024-10-02] MEDS: CEFTRIAXONE 1 GM in DEXTROSE 5%-WATER - 50 ML IVPB SCH (09:16)
[2024-10-02] MEDS: PANTOPRAZOLE 40 MG TABLET PO SCH (09:17)
[2024-10-02] MEDS: SERTRALINE HCL 25 MG TABLET (FP) PO SCH (09:17)
[2024-10-02] MEDS: TORSEMIDE 100 MG TABLET PO SCH (09:17)
[2024-10-02] MEDS ORDERED: TORSEMIDE 100 MG TABLET PO SCH (10:00)
[2024-10-02] MEDS: ACETAMINOPHEN 325 MG TABLET (FP) PO PRN (11:27)
[2024-10-04 02:36] VITALS: RESP 18
[2024-10-04 08:32] VITALS: BP 108/63; PULSE 91; TEMP 97.9
[2024-10-04] MEDS ORDERED: NITROFURANTOIN MONOHYD/M-CRYST 100 MG CAPSULE PO SCH (22:00)
== END 2024-10-04 15:45 | DRG 191 ==
LOC: JER 09:56 → JERBED 11:46 → J7W 15:02
PROVIDERS: ADMIT Internal Medicine; ATTEND Internal Medicine
DX: J44.1 Chronic obstructive pulmonary disease with (acute) exacerbation (principal); N39.0 Urinary tract infection, site not specified; I50.20 Unspecified systolic (congestive) heart failure; I11.0 Hypertensive heart disease with heart failure; E11.9 Type 2 diabetes mellitus without complications; I48.91 Unspecified atrial fibrillation
CPT/HCPCS: 36415; 71045-TC-FY; 80048; 80053; 81003; 82962; 83036; 83605; 83735; 83880; 84100; 84484; 85025; 85610; 85730; 86803; 86850; 86900; 86901; 87040; 87086; 87389; 87637-QW; 93005; 93010; 93306-TC; 94640; 97116-GP; 97161-GP; 99285-25